=== PATIENT | male | born 1945 | race African-American/Black ===

== ENCOUNTER 2016-11-17 14:32 | Inpatient (IN) | payer OTHER, MEDICARE ==
[~2016-11-17] VITALS: Ht 170.2 cm; Wt 58.2 kg
[~2016-11-17 14:32] MED LIST changes: -LISI-170 PO
[2016-11-17] MEDS ORDERED: ADENOSINE 6 MG/2 ML ONE (15:06)
[2016-11-17] MEDS ORDERED: LISI-170 PO (15:28)
[2016-11-17] MEDS ORDERED: SODIUM CHLORIDE FLUSH 10ML SYR IVF ONE (15:30)
[2016-11-17] MEDS ORDERED: ADENOSINE 6 MG/2 ML IVPush ONE ×2 (15:30)
[2016-11-17] MEDS ORDERED: SODIUM CHLORIDE 0.9% 1,000ML IVBOLUS ONE (15:30)
[2016-11-17 15:49] LABS: BLOOD UREA NITROGEN 92 mg/dL (7-18)
[2016-11-17 15:55] LABS: ASPARTATE AMINO TRANSFERASE 50 U/L (15-37)
[2016-11-17 15:56] LABS: IS PT STATUS REG ER OR PRE ER? YES
[2016-11-17] MEDS ORDERED: DILTIAZEM 5 MG/ML, 5ML IVPush ONE (16:00)
[2016-11-17] MEDS ORDERED: DIGOXIN 0.25 MG/ML, 2ML IVPush ONE (16:00)
[2016-11-17] MEDS ORDERED: ETOMIDATE 20 MG/10 ML ONE (16:24)
[2016-11-17] MEDS ORDERED: DIGOXIN 0.25 MG/ML, 2ML ONE (16:24)
[2016-11-17] MEDS ORDERED: DILTIAZEM 5 MG/ML, 5ML ONE (16:25)
[2016-11-17] MEDS ORDERED: AMIODARONE 900 MG in DEXTROSE 5% 482 ML IV PRN (17:00)
[2016-11-17] MEDS ORDERED: AMIODARONE 300 MG in DEXTROSE 5% 100 ML IV ONE (17:00)
[2016-11-17] MEDS ORDERED: FILTER 0.22 MICRON FOR AMIODARONE IV PRN (17:30)
[2016-11-17] MEDS ORDERED: NOREPINEPHRINE 4 MG in SODIUM CHLORIDE 0.9% 246 ML IV PRN (18:00)
[2016-11-17] MEDS ORDERED: PIPERACILLIN/TAZO 2.25 GM in SODIUM CHLORIDE 0.9% 100 ML IVPB ONE (18:00)
[2016-11-17] MEDS ORDERED: VANCOMYCIN PER PHARMACY MC ONE (18:00)
[2016-11-17] MEDS ORDERED: VANCOMYCIN 1,100 MG in SODIUM CHLORIDE 0.9% 250 ML IV ONE (18:30)
[2016-11-17] MEDS ORDERED: SODIUM BICARBONATE 4.2%, 5ML ONE (19:50)
[2016-11-17] MEDS ORDERED: LIDOCAINE 1%, 20ML ONE (19:50)
[2016-11-17] MEDS ORDERED: ACETAMINOPHEN 325 MG TABLET PO PRN (20:30)
[2016-11-17] MEDS ORDERED: DOCUSATE 100 MG CAPSULE PO PRN (20:30)
[2016-11-17] MEDS ORDERED: POLYETHYLENE GLYCOL 17 GM PACKET PO PRN (20:30)
[2016-11-17] MEDS ORDERED: VASOPRESSIN 100 UNIT in SODIUM CHLORIDE 0.9% 495 ML IV PRN (20:30)
[2016-11-17] MEDS ORDERED: ONDANSETRON 2MG/ML, 2ML IVPush PRN (20:30)
[2016-11-17] MEDS ORDERED: LABETALOL 5MG/ML, 20ML IVPush PRN (20:30)
[2016-11-17] MEDS ORDERED: BISACODYL 10 MG SUPP PR PRN (20:30)
[2016-11-17] MEDS: NS + 20MEQ KCL 1,000 ML IV SCH (21:17)
[2016-11-17 21:42] VITALS: BP 85/58
[2016-11-17 22:00] VITALS: BP 84/60
[2016-11-17] MEDS: HEPARIN 5,000 UNITS/ML, 1ML SQ SCH (22:11)
[2016-11-17] MEDS: LINEZOLID PMX 600MG/300ML 300 ML IV SCH (22:12)
[2016-11-18] MEDS: PIPERACILLIN/TAZO 2.25 GM in SODIUM CHLORIDE 0.9% 100 ML IV SCH ×4 (00:16→17:47)
[2016-11-18] MEDS: NS + 20MEQ KCL 1,000 ML IV SCH ×3 (02:44→19:52)
[2016-11-18 04:15] VITALS: BP 103/72
[2016-11-18] MEDS: HEPARIN 5,000 UNITS/ML, 1ML SQ SCH ×3 (05:21→20:57)
[2016-11-18 05:41] LABS: ASPARTATE AMINO TRANSFERASE 41 U/L (15-37); BLOOD UREA NITROGEN 69 mg/dL (7-18)
[2016-11-18] MEDS: POTASSIUM CHLORIDE 20 MEQ TAB.ER.PRT PO SCH ×2 (10:07→19:52)
[2016-11-18] MEDS: LINEZOLID PMX 600MG/300ML 300 ML IV SCH ×2 (10:07→20:01)
[2016-11-18] MEDS: NOREPINEPHRINE 4 MG in SODIUM CHLORIDE 0.9% 246 ML IV PRN (17:48)
[2016-11-18] MEDS: AMIODARONE 200 MG TABLET PO SCH (19:52)
[2016-11-18] MEDS: PIPERACILLIN/TAZO/PMX 2.25GM 50 ML IV SCH (23:38)
[2016-11-19] MEDS: NS + 20MEQ KCL 1,000 ML IV SCH ×2 (01:05→08:17)
[2016-11-19 03:54] VITALS: BP 95/58
[2016-11-19 04:47] LABS: BLOOD UREA NITROGEN 37 mg/dL (7-18)
[2016-11-19 04:51] LABS: ASPARTATE AMINO TRANSFERASE 34 U/L (15-37)
[2016-11-19] MEDS: PIPERACILLIN/TAZO/PMX 2.25GM 50 ML IV SCH ×2 (05:28→13:27)
[2016-11-19] MEDS: HEPARIN 5,000 UNITS/ML, 1ML SQ SCH ×3 (05:28→22:00)
[2016-11-19] MEDS ORDERED: BUPIVACAINE/PF-EPI 0.25% 1:200K ONE (07:05)
[2016-11-19] MEDS: LINEZOLID PMX 600MG/300ML 300 ML IV SCH ×2 (08:17→21:41)
[2016-11-19] MEDS: AMIODARONE 200 MG TABLET PO SCH ×2 (08:28→21:48)
[2016-11-19] MEDS ORDERED: SODIUM CHLORIDE 0.9% 1,000 ML IV SCH (09:30)
[2016-11-19] MEDS: NOREPINEPHRINE 4 MG in SODIUM CHLORIDE 0.9% 246 ML IV PRN (13:45)
[2016-11-19] MEDS ORDERED: FENTANYL PF 250 MCG/5ML ONE (13:59)
[2016-11-19] MEDS ORDERED: MIDAZOLAM 1 MG/ML, 2ML ONE (13:59)
[2016-11-19] MEDS ORDERED: CALCIUM CHLORIDE 10%, 10ML SYR ONE (15:30)
[2016-11-19] MEDS ORDERED: EPHEDRINE 50 MG/ML, 1ML ONE (15:30)
[2016-11-19] MEDS ORDERED: PHENYLEPHRINE 10 MG/ML ONE (15:30)
[2016-11-19] MEDS ORDERED: SODIUM BICARB 8.4%, 50ML SYRINGE ONE (15:30)
[2016-11-19] MEDS ORDERED: ROCURONIUM 10 MG/ML ONE (15:30)
[2016-11-19] MEDS ORDERED: PROPOFOL 10 MG/ML, 20ML ONE (15:30)
[2016-11-19] MEDS ORDERED: POTASSIUM CHLORIDE 20 MEQ in D5%-0.45% NACL 1,000 ML IV SCH (18:32)
[2016-11-19 18:45] LABS: ABG COLLECTION SITE ARTERIAL LINE
[2016-11-19 18:54] LABS: HIV-1 p24 ANTIGEN Nonreactive (Nonreactive)
[2016-11-19] MEDS ORDERED: LACTULOSE 20 GM/30 ML UDC NG PRN (19:00)
[2016-11-19] MEDS ORDERED: BISACODYL 10 MG SUPP PR PRN (19:00)
[2016-11-19] MEDS ORDERED: ONDANSETRON 2MG/ML, 2ML IV PRN (19:00)
[2016-11-19] MEDS ORDERED: SENNA/DOCUSATE TABLET NG PRN (19:00)
[2016-11-19] MEDS ORDERED: PHARMACY MAY ADJ FOR RENAL FX MC SCH (19:00)
[2016-11-19] MEDS ORDERED: LABETALOL 5MG/ML, 20ML IVPush PRN (19:00)
[2016-11-19] MEDS ORDERED: SENNOSIDES 8.8 MG/5 ML ORAL SOL NG PRN (19:00)
[2016-11-19 19:01] LABS: HIV 1&2 ANTIBODY SCREEN Preliminary Positive (Nonreactive); HIV 1/2 Ab/Ag DISCLAIMER *** Please Note ***; HIV-1/2 Ab/Ag COMBO COMMENT *** Comment ***
[2016-11-19 19:04] LABS: HIV 1&2 ANTIBODY SCREEN REPEAT Preliminary Positive (Nonreactive); HIV 1/2 Ab/Ag DISCLAIMER *** Please Note ***; HIV-1 p24 ANTIGEN REPEAT Nonreactive (Nonreactive)
[2016-11-19 19:07] LABS: HIV-1/2 Ab/Ag COMBO COM REPEAT *** Comment ***
[2016-11-19] MEDS ORDERED: PROPOFOL 100 ML IV ONE (19:08)
[2016-11-19] MEDS: PROPOFOL 100 ML IV PRN (19:19)
[2016-11-19] MEDS: morphine SULFATE 10 MG/ML, 1ML IV PRN (19:24)
[2016-11-19] MEDS: POTASSIUM CHLORIDE 20 MEQ in D5%-0.45% NACL 1,000 ML IV SCH (20:25)
[2016-11-19] MEDS: PIPERACILLIN/TAZO/PMX 4.5GM 100 ML IV SCH (20:25)
[2016-11-19 20:32] LABS: BLOOD UREA NITROGEN 25 mg/dL (7-18)
[2016-11-19] MEDS ORDERED: FLUCONAZOLE 400 MG/200 ML 200 ML IV SCH (21:00)
[2016-11-19] MEDS: FLUCONAZOLE 400 MG/200 ML 200 ML IV SCH (21:49)
[2016-11-19] MEDS: FLUCONAZOLE 200 MG/100 ML 100 ML IV SCH (21:50)
[2016-11-19] MEDS ORDERED: FLUCONAZOLE 200 MG/100 ML 100 ML IV SCH (22:00)
[2016-11-20] MEDS: PIPERACILLIN/TAZO/PMX 4.5GM 100 ML IV SCH ×4 (02:19→20:38)
[2016-11-20 04:03] VITALS: BP 107/68
[2016-11-20 04:43] LABS: ABG COLLECTION SITE ARTERIAL LINE
[2016-11-20] MEDS: HEPARIN 5,000 UNITS/ML, 1ML SQ SCH ×3 (05:35→20:39)
[2016-11-20] MEDS: PROPOFOL 100 ML IV PRN ×2 (06:22→20:38)
[2016-11-20] MEDS: morphine SULFATE 10 MG/ML, 1ML IV PRN ×2 (06:45→13:09)
[2016-11-20 07:23] LABS: ASPARTATE AMINO TRANSFERASE 32 U/L (15-37); BLOOD UREA NITROGEN 21 mg/dL (7-18)
[2016-11-20 07:28] LABS: DIFF TOTAL CELLS COUNTED 100 CELL DIFF
[2016-11-20 07:34] LABS: VERIFY COUNTS? YES
[2016-11-20] MEDS ORDERED: MAGNESIUM SULFATE PMX 2GM/50ML 50 ML IV ONE (09:00)
[2016-11-20] MEDS: AMIODARONE 200 MG TABLET PO SCH ×2 (09:00→20:38)
[2016-11-20] MEDS: LINEZOLID PMX 600MG/300ML 300 ML IV SCH ×2 (10:02→21:39)
[2016-11-20 12:23] LABS: C-REACTIVE PROTEIN, QUANT 6.1 mg/dL (0.02-0.49)
[2016-11-20] MEDS ORDERED: FILTER 0.22 MICRON IV PRN (16:30)
[2016-11-20] MEDS ORDERED: AMIODARONE 900 MG in DEXTROSE 5% 482 ML IV PRN (16:30)
[2016-11-20] MEDS: POTASSIUM CHLORIDE 20 MEQ in D5%-0.45% NACL 1,000 ML IV SCH (17:34)
[2016-11-20] MEDS ORDERED: AMIODARONE 150 MG in DEXTROSE 5% 100 ML IV ONE (18:30)
[2016-11-20] MEDS ORDERED: POTASSIUM CHLORIDE 10% 20 MEQ/15 ML UDC PO ONE (18:30)
[2016-11-20] MEDS ORDERED: FILTER 0.22 MICRON IV ONE (18:30)
[2016-11-20] MEDS: NOREPINEPHRINE 4 MG in SODIUM CHLORIDE 0.9% 246 ML IV PRN (20:37)
[2016-11-21] MEDS: FLUCONAZOLE 400 MG/200 ML 200 ML IV SCH (00:31)
[2016-11-21] MEDS: morphine SULFATE 10 MG/ML, 1ML IV PRN ×2 (00:31→03:49)
[2016-11-21 03:45] VITALS: BP 116/65
[2016-11-21] MEDS: FLUCONAZOLE 200 MG/100 ML 100 ML IV SCH (03:48)
[2016-11-21 04:44] LABS: ABG COLLECTION SITE RIGHT RADIAL; COLLATERAL CIRCULATION TESTING NORMAL
[2016-11-21 05:10] LABS: BLOOD UREA NITROGEN 15 mg/dL (7-18)
[2016-11-21 05:14] LABS: ASPARTATE AMINO TRANSFERASE 23 U/L (15-37)
[2016-11-21] MEDS: PIPERACILLIN/TAZO/PMX 4.5GM 100 ML IV SCH ×4 (05:45→21:23)
[2016-11-21] MEDS: HEPARIN 5,000 UNITS/ML, 1ML SQ SCH (05:45)
[2016-11-21] MEDS: AMIODARONE 200 MG TABLET PO SCH ×2 (09:00→20:58)
[2016-11-21] MEDS: POTASSIUM CHLORIDE 20 MEQ in D5%-0.45% NACL 1,000 ML IV SCH ×2 (09:13→21:23)
[2016-11-21] MEDS: LINEZOLID PMX 600MG/300ML 300 ML IV SCH ×2 (09:51→20:56)
[2016-11-21] MEDS ORDERED: AMIODARONE 900 MG in DEXTROSE 5% 482 ML IV PRN (16:00)
[2016-11-21] MEDS ORDERED: FILTER 0.22 MICRON IV ONE (16:00)
[2016-11-22] MEDS: morphine SULFATE 10 MG/ML, 1ML IV PRN ×5 (00:46→23:53)
[2016-11-22] MEDS: PIPERACILLIN/TAZO/PMX 4.5GM 100 ML IV SCH ×4 (04:03→20:59)
[2016-11-22 04:23] LABS: ABG COLLECTION SITE RIGHT RADIAL; COLLATERAL CIRCULATION TESTING NORMAL
[2016-11-22 04:36] LABS: BLOOD UREA NITROGEN 11 mg/dL (7-18)
[2016-11-22 04:39] LABS: ASPARTATE AMINO TRANSFERASE 24 U/L (15-37)
[2016-11-22] MEDS: POTASSIUM CHLORIDE 20 MEQ in D5%-0.45% NACL 1,000 ML IV SCH ×2 (08:18→20:59)
[2016-11-22] MEDS: LINEZOLID PMX 600MG/300ML 300 ML IV SCH (08:19)
[2016-11-22] MEDS: AMIODARONE 200 MG TABLET PO SCH ×2 (09:00→20:25)
[2016-11-22] MEDS: EFAVIRENZ/EMTRICITAB/TENOFOVIR 600MG-200MG-300MG TABLET PO SCH (09:00)
[2016-11-22 15:06] LABS: ABSOLUTE CD 4 HELPER 461 /uL (359-1519); HEMATOCRIT 30.9 % (37.5-51.0); IMMATURE GRANS (ABSOLUTE) 0.1 x10E3/uL (0.0-0.1); IMMATURE GRANULOCYTES 1 % (.); MCH 31.1 pg (26.6-33.0); MCHC 32.4 g/dL (31.5-35.7); MCV 96 fL (79-97); MONOCYTES 11 % (.); NEUTROPHILS 82 % (.); PLATELETS 365 x10E3/uL (150-379); RBC 3.22 x10E6/uL (4.14-5.80); RDW 15.8 % (12.3-15.4); WBC 18.4 x10E3/uL (3.4-10.8)
[2016-11-22 20:06] LABS: HERPES SIMPLEX VIRUS-1 DNA PCR Negative (Negative); HERPES SIMPLEX VIRUS-2 DNA PCR Negative (Negative)
[2016-11-23] MEDS: morphine SULFATE 10 MG/ML, 1ML IV PRN (02:34)
[2016-11-23] MEDS: PIPERACILLIN/TAZO/PMX 4.5GM 100 ML IV SCH ×4 (03:00→16:30)
[2016-11-23 04:27] LABS: ASPARTATE AMINO TRANSFERASE 31 U/L (15-37); BLOOD UREA NITROGEN 10 mg/dL (7-18)
[2016-11-23 04:29] LABS: ABG COLLECTION SITE LEFT BRACHIAL
[2016-11-23] MEDS: EFAVIRENZ/EMTRICITAB/TENOFOVIR 600MG-200MG-300MG TABLET PO SCH (09:00)
[2016-11-23] MEDS: AMIODARONE 200 MG TABLET PO SCH ×2 (09:00→21:00)
[2016-11-23 14:53] LABS: CRYPTOCOCCUS ANTIGEN SERUM Negative (Negative)
[2016-11-23] MEDS: POTASSIUM CHLORIDE 20 MEQ in D5%-0.45% NACL 1,000 ML IV SCH ×2 (16:30→19:10)
[2016-11-24] MEDS: POTASSIUM CHLORIDE 20 MEQ in D5%-0.45% NACL 1,000 ML IV SCH ×4 (02:00→22:20)
[2016-11-24] MEDS: PIPERACILLIN/TAZO/PMX 4.5GM 100 ML IV SCH ×4 (03:00→23:02)
[2016-11-24] MEDS: EFAVIRENZ/EMTRICITAB/TENOFOVIR 600MG-200MG-300MG TABLET PO SCH (09:00)
[2016-11-24] MEDS: AMIODARONE 200 MG TABLET PO SCH ×2 (09:00→22:20)
[2016-11-24] MEDS: FUROSEMIDE 10 MG/ML ORAL SOL PO SCH (16:52)
[2016-11-24 19:50] VITALS: BP 133/89
[2016-11-24] MEDS ORDERED: FUROSEMIDE 10 MG/ML ORAL SOL PO SCH (21:00)
[2016-11-24] MEDS: TRAZODONE 50MG TABLET PO PRN (22:20)
[2016-11-24] MEDS: POTASSIUM CHLORIDE 20 MEQ PACKET PO SCH (22:21)
[2016-11-25 02:23] VITALS: BP 101/64
[2016-11-25] MEDS: PIPERACILLIN/TAZO/PMX 4.5GM 100 ML IV SCH ×4 (04:19→22:36)
[2016-11-25] MEDS: POTASSIUM CHLORIDE 20 MEQ in D5%-0.45% NACL 1,000 ML IV SCH ×2 (04:19→17:39)
[2016-11-25 07:30] LABS: ASPARTATE AMINO TRANSFERASE 33 U/L (15-37); BLOOD UREA NITROGEN 6 mg/dL (7-18)
[2016-11-25 07:48] VITALS: BP 108/70
[2016-11-25] MEDS: FUROSEMIDE 10 MG/ML ORAL SOL PO SCH (08:58)
[2016-11-25] MEDS: AMIODARONE 200 MG TABLET PO SCH ×2 (08:58→21:16)
[2016-11-25] MEDS: EFAVIRENZ/EMTRICITAB/TENOFOVIR 600MG-200MG-300MG TABLET PO SCH (08:59)
[2016-11-25] MEDS: POTASSIUM CHLORIDE 20 MEQ PACKET PO SCH (08:59)
[2016-11-25] MEDS ORDERED: AMIODARONE 150 MG in DEXTROSE 5% 100 ML IV ONE (10:00)
[2016-11-25 12:55] VITALS: BP 112/71
[2016-11-25] MEDS ORDERED: FILTER 0.22 MICRON FOR AMIODARONE IV PRN (15:30)
[2016-11-25] MEDS ORDERED: ACETAMINOPHEN 650 MG/20.3 ML UDC PO PRN (15:59)
[2016-11-25 18:59] VITALS: BP 104/63
[2016-11-26] MEDS: POTASSIUM CHLORIDE 20 MEQ in D5%-0.45% NACL 1,000 ML IV SCH ×3 (01:09→21:23)
[2016-11-26 01:41] VITALS: BP 96/62
[2016-11-26] MEDS: TRAZODONE 50MG TABLET PO PRN ×2 (02:13→22:53)
[2016-11-26 04:03] LABS: ASPARTATE AMINO TRANSFERASE 29 U/L (15-37); BLOOD UREA NITROGEN 7 mg/dL (7-18)
[2016-11-26] MEDS: PIPERACILLIN/TAZO/PMX 4.5GM 100 ML IV SCH ×4 (05:01→22:53)
[2016-11-26 07:13] VITALS: BP 104/65
[2016-11-26] MEDS: AMIODARONE 200 MG TABLET PO SCH ×2 (09:36→20:16)
[2016-11-26] MEDS: EFAVIRENZ/EMTRICITAB/TENOFOVIR 600MG-200MG-300MG TABLET PO SCH (09:37)
[2016-11-26] MEDS ORDERED: POTASSIUM CHLORIDE 20 MEQ TAB.ER.PRT PO ONE (10:30)
[2016-11-26] MEDS ORDERED: POTASSIUM CHLORIDE 10% 40 MEQ/30 ML UDC PO ONE (10:30)
[2016-11-26 13:11] VITALS: BP 114/64
[2016-11-26 18:59] VITALS: BP 117/73
[2016-11-26 20:14] VITALS: BP 110/68
[2016-11-27 00:25] VITALS: BP 133/60
[2016-11-27 05:46] LABS: ASPARTATE AMINO TRANSFERASE 29 U/L (15-37); BLOOD UREA NITROGEN 8 mg/dL (7-18)
[2016-11-27] MEDS: PIPERACILLIN/TAZO/PMX 4.5GM 100 ML IV SCH ×4 (06:38→23:04)
[2016-11-27] MEDS: POTASSIUM CHLORIDE 20 MEQ in D5%-0.45% NACL 1,000 ML IV SCH (07:28)
[2016-11-27 07:33] VITALS: BP 109/65
[2016-11-27 11:57] LABS: BLOOD UREA NITROGEN 7 mg/dL (7-18)
[2016-11-27] MEDS: AMIODARONE 200 MG TABLET PO SCH ×2 (12:44→21:48)
[2016-11-27] MEDS: EFAVIRENZ/EMTRICITAB/TENOFOVIR 600MG-200MG-300MG TABLET PO SCH (12:44)
[2016-11-27 13:10] VITALS: BP 126/77
[2016-11-27 19:58] VITALS: BP 130/65
[2016-11-28 00:24] VITALS: BP 106/71
[2016-11-28] MEDS: PIPERACILLIN/TAZO/PMX 4.5GM 100 ML IV SCH ×4 (04:48→23:39)
[2016-11-28 05:09] LABS: BLOOD UREA NITROGEN 8 mg/dL (7-18)
[2016-11-28 06:50] VITALS: BP 122/68
[2016-11-28] MEDS: AMIODARONE 200 MG TABLET PO SCH ×2 (09:29→21:12)
[2016-11-28] MEDS: EFAVIRENZ/EMTRICITAB/TENOFOVIR 600MG-200MG-300MG TABLET PO SCH (09:30)
[2016-11-28] MEDS: GUAIFENESIN 200 MG TABLET PO SCH ×3 (12:51→21:12)
[2016-11-28 14:10] VITALS: BP 121/74
[2016-11-28] MEDS ORDERED: ENOXAPARIN 40 MG/0.4 ML SQ SCH (18:30)
[2016-11-28 19:06] VITALS: BP 115/69
[2016-11-29 01:29] VITALS: BP 111/57
[2016-11-29] MEDS: GUAIFENESIN 200 MG TABLET PO SCH ×4 (05:00→21:23)
[2016-11-29] MEDS: PIPERACILLIN/TAZO/PMX 4.5GM 100 ML IV SCH ×3 (05:00→20:26)
[2016-11-29 05:45] LABS: BLOOD UREA NITROGEN 9 mg/dL (7-18)
[2016-11-29 05:48] LABS: ASPARTATE AMINO TRANSFERASE 25 U/L (15-37)
[2016-11-29 07:20] VITALS: BP 135/73
[2016-11-29] MEDS: AMIODARONE 200 MG TABLET PO SCH ×2 (08:52→14:47)
[2016-11-29] MEDS: EFAVIRENZ/EMTRICITAB/TENOFOVIR 600MG-200MG-300MG TABLET PO SCH ×2 (08:52→14:46)
[2016-11-29] MEDS: POTASSIUM CHLORIDE 20 MEQ TAB.ER.PRT PO ONE ×2 (08:52→14:47)
[2016-11-29] MEDS: ASPIRIN 81 MG TABLET CHEW PO SCH ×2 (08:52→09:00)
[2016-11-29 12:40] VITALS: BP 136/79
[2016-11-29] MEDS: ALBUTEROL SULFATE 2.5 MG/3 ML NPPB SCH ×2 (15:25→20:28)
[2016-11-29 16:42] LABS: ABG COLLECTION SITE RIGHT RADIAL; COLLATERAL CIRCULATION TESTING NORMAL
[2016-11-29] MEDS ORDERED: POTASSIUM CHLORIDE 20 MEQ PACKET PO SCH (17:00)
[2016-11-29] MEDS: FUROSEMIDE 40 MG/4 ML IV SCH (17:22)
[2016-11-29] MEDS ORDERED: AMIODARONE 200 MG TABLET PO ONE (18:00)
[2016-11-29] MEDS: ENOXAPARIN 40 MG/0.4 ML SQ SCH (21:17)
[2016-11-29] MEDS: ALBUMIN HUMAN 25% 100 ML IV SCH (21:23)
[2016-11-30] MEDS: AMIODARONE 200 MG TABLET PO SCH ×3 (00:31→21:04)
[2016-11-30] MEDS: PIPERACILLIN/TAZO/PMX 4.5GM 100 ML IV SCH ×5 (00:31→22:52)
[2016-11-30 04:39] LABS: BLOOD UREA NITROGEN 9 mg/dL (7-18)
[2016-11-30] MEDS: GUAIFENESIN 200 MG TABLET PO SCH ×4 (05:08→21:04)
[2016-11-30] MEDS: ALBUTEROL SULFATE 2.5 MG/3 ML NPPB SCH ×6 (06:00→21:35)
[2016-11-30] MEDS: EFAVIRENZ/EMTRICITAB/TENOFOVIR 600MG-200MG-300MG TABLET PO SCH (09:12)
[2016-11-30] MEDS: POTASSIUM CHLORIDE 10% 40 MEQ/30 ML UDC PO SCH ×2 (09:14→21:04)
[2016-11-30] MEDS: ASPIRIN 81 MG TABLET CHEW PO SCH (09:14)
[2016-11-30] MEDS: FUROSEMIDE 40 MG/4 ML IV SCH (09:15)
[2016-11-30] MEDS: ALBUMIN HUMAN 25% 100 ML IV SCH ×2 (09:16→21:05)
[2016-11-30] MEDS: ENOXAPARIN 40 MG/0.4 ML SQ SCH (21:05)
[2016-11-30] MEDS: TRAZODONE 50MG TABLET PO PRN (22:51)
[2016-12-01] MEDS: TRAZODONE 50MG TABLET PO PRN (00:04)
[2016-12-01] MEDS: ALBUTEROL SULFATE 2.5 MG/3 ML NPPB SCH ×2 (01:45→06:55)
[2016-12-01] MEDS: PIPERACILLIN/TAZO/PMX 4.5GM 100 ML IV SCH ×4 (04:50→23:19)
[2016-12-01 05:00] VITALS: BP 128/68
[2016-12-01 05:01] LABS: BLOOD UREA NITROGEN 10 mg/dL (7-18)
[2016-12-01] MEDS: GUAIFENESIN 200 MG TABLET PO SCH ×4 (05:34→20:53)
[2016-12-01] MEDS ORDERED: POTASSIUM CHLORIDE 10% 40 MEQ/30 ML UDC PO ONE (07:01)
[2016-12-01] MEDS ORDERED: ETOMIDATE 20 MG/10 ML ONE (08:00)
[2016-12-01] MEDS ORDERED: MIDAZOLAM 1 MG/ML, 5ML ONE (08:00)
[2016-12-01] MEDS ORDERED: PROPOFOL 10 MG/ML, 20ML ONE (08:00)
[2016-12-01] MEDS: AMIODARONE 200 MG TABLET PO SCH ×2 (08:24→20:53)
[2016-12-01] MEDS: ASPIRIN 81 MG TABLET CHEW PO SCH (08:24)
[2016-12-01] MEDS: EFAVIRENZ/EMTRICITAB/TENOFOVIR 600MG-200MG-300MG TABLET PO SCH (08:24)
[2016-12-01] MEDS: ALBUMIN HUMAN 25% 100 ML IV SCH ×2 (09:21→20:54)
[2016-12-01 10:02] LABS: ABG COLLECTION SITE LEFT RADIAL; COLLATERAL CIRCULATION TESTING NORMAL; FIO2 85 %
[2016-12-01] MEDS ORDERED: ALBUTEROL SULFATE 2.5 MG/3 ML INLINE SCH (11:00)
[2016-12-01] MEDS ORDERED: NOREPINEPHRINE 4 MG in SODIUM CHLORIDE 0.9% 246 ML IV PRN (11:07)
[2016-12-01] MEDS ORDERED: ALBUTEROL/IPRATROPIUM 2.5MG/0.5MG, 3 ML INLINE SCH (11:30)
[2016-12-01] MEDS ORDERED: GLUCAGON 1 MG IM PRN (11:30)
[2016-12-01] MEDS ORDERED: FENTANYL PF 100 MCG/2ML IVPush PRN (11:30)
[2016-12-01] MEDS ORDERED: MIDAZOLAM 1 MG/ML, 2ML IVPush PRN (11:30)
[2016-12-01] MEDS ORDERED: DEXTROSE 50%, 50ML SYRINGE IVPush PRN (11:30)
[2016-12-01 12:00] LABS: ABG COLLECTION SITE LEFT BRACHIAL
[2016-12-01] MEDS: PROPOFOL 100 ML IV PRN ×2 (15:05→22:04)
[2016-12-01] MEDS: ALBUTEROL/IPRATROPIUM 2.5MG/0.5MG, 3 ML INLINE SCH ×3 (15:25→22:04)
[2016-12-01] MEDS ORDERED: SODIUM CHLORIDE 0.9%, 500ML IVBOLUS ONE ×2 (20:00→21:00)
[2016-12-01] MEDS: SODIUM CHLORIDE FLUSH 10ML SYR IVF SCH (20:54)
[2016-12-01] MEDS: ENOXAPARIN 40 MG/0.4 ML SQ SCH (20:58)
[2016-12-02] MEDS: ALBUTEROL/IPRATROPIUM 2.5MG/0.5MG, 3 ML INLINE SCH ×6 (01:22→21:00)
[2016-12-02] MEDS: LIDOCAINE-MPF 1%, 2ML ENDO PRN ×3 (04:46→19:11)
[2016-12-02 04:58] LABS: ABG COLLECTION SITE LEFT RADIAL; COLLATERAL CIRCULATION TESTING NORMAL
[2016-12-02 05:00] VITALS: BP 74/52
[2016-12-02 05:00] LABS: BLOOD UREA NITROGEN 11 mg/dL (7-18)
[2016-12-02] MEDS: PIPERACILLIN/TAZO/PMX 4.5GM 100 ML IV SCH ×3 (06:06→17:35)
[2016-12-02] MEDS: GUAIFENESIN 200 MG TABLET PO SCH ×4 (06:06→21:06)
[2016-12-02] MEDS ORDERED: POTASSIUM CHLORIDE 10% 40 MEQ/30 ML UDC PO ONE (07:30)
[2016-12-02] MEDS: ALBUMIN HUMAN 25% 100 ML IV SCH ×2 (08:36→21:05)
[2016-12-02] MEDS: EFAVIRENZ/EMTRICITAB/TENOFOVIR 600MG-200MG-300MG TABLET PO SCH (08:36)
[2016-12-02] MEDS: ASPIRIN 81 MG TABLET CHEW PO SCH (08:36)
[2016-12-02] MEDS: SODIUM CHLORIDE FLUSH 10ML SYR IVF SCH ×2 (08:36→21:06)
[2016-12-02] MEDS: AMIODARONE 200 MG TABLET PO SCH (08:37)
[2016-12-02] MEDS: PROPOFOL 100 ML IV PRN ×2 (08:53→17:31)
[2016-12-02] MEDS: SODIUM CHLORIDE 0.9% 1,000 ML IV SCH ×2 (09:11→22:20)
[2016-12-02] MEDS: FAMOTIDINE 20 MG/2 ML IVPush SCH ×2 (10:25→21:06)
[2016-12-02 17:06] LABS: HCV LOG10 5.872 (.); HEPATITIS C PCR QUANTITATION 745000 IU/mL (.)
[2016-12-02] MEDS: ENOXAPARIN 40 MG/0.4 ML SQ SCH (21:08)
[2016-12-03] VITALS (7 sets, daily range): BP systolic 92–108; BP diastolic 52–60
[2016-12-03] MEDS: PIPERACILLIN/TAZO/PMX 4.5GM 100 ML IV SCH ×4 (01:00→17:14)
[2016-12-03] MEDS: ALBUTEROL/IPRATROPIUM 2.5MG/0.5MG, 3 ML INLINE SCH ×6 (01:00→21:00)
[2016-12-03] MEDS: PROPOFOL 100 ML IV PRN ×3 (01:01→20:11)
[2016-12-03] MEDS: morphine SULFATE 10 MG/ML, 1ML IV PRN ×2 (03:41→20:27)
[2016-12-03 04:27] LABS: ABG COLLECTION SITE RIGHT RADIAL; COLLATERAL CIRCULATION TESTING NORMAL
[2016-12-03 04:55] LABS: BLOOD UREA NITROGEN 9 mg/dL (7-18)
[2016-12-03] MEDS: GUAIFENESIN 200 MG TABLET PO SCH ×4 (07:50→20:13)
[2016-12-03] MEDS: ALBUMIN HUMAN 25% 100 ML IV SCH ×3 (09:00→20:22)
[2016-12-03] MEDS: GLYCOPYRROLATE 1 MG TABLET PO SCH ×2 (09:00→20:12)
[2016-12-03] MEDS: AMIODARONE 200 MG TABLET PO SCH (09:09)
[2016-12-03] MEDS: ASPIRIN 81 MG TABLET CHEW PO SCH (09:09)
[2016-12-03] MEDS: EFAVIRENZ/EMTRICITAB/TENOFOVIR 600MG-200MG-300MG TABLET PO SCH (09:09)
[2016-12-03] MEDS: POTASSIUM CHLORIDE 10% 40 MEQ/30 ML UDC PO SCH ×2 (09:09→20:12)
[2016-12-03] MEDS: SODIUM CHLORIDE FLUSH 10ML SYR IVF SCH ×2 (09:10→20:11)
[2016-12-03] MEDS: FAMOTIDINE 20 MG/2 ML IVPush SCH ×2 (09:10→20:14)
[2016-12-03] MEDS: SODIUM CHLORIDE 0.9% 1,000 ML IV SCH (16:16)
[2016-12-03] MEDS: ENOXAPARIN 40 MG/0.4 ML SQ SCH (20:13)
[2016-12-04] MEDS: PIPERACILLIN/TAZO/PMX 4.5GM 100 ML IV SCH ×5 (01:05→23:37)
[2016-12-04] MEDS: SODIUM CHLORIDE 0.9% 1,000 ML IV SCH ×2 (01:05→08:48)
[2016-12-04] MEDS: ALBUTEROL/IPRATROPIUM 2.5MG/0.5MG, 3 ML INLINE SCH ×6 (02:29→21:24)
[2016-12-04 04:18] LABS: ABG COLLECTION SITE RIGHT RADIAL; COLLATERAL CIRCULATION TESTING NORMAL
[2016-12-04 04:27] LABS: BLOOD UREA NITROGEN 12 mg/dL (7-18)
[2016-12-04] MEDS: PROPOFOL 100 ML IV PRN ×2 (06:03→15:43)
[2016-12-04] MEDS: GUAIFENESIN 200 MG TABLET PO SCH ×4 (08:47→21:58)
[2016-12-04] MEDS: FAMOTIDINE 20 MG/2 ML IVPush SCH ×2 (08:48→21:58)
[2016-12-04] MEDS: ASPIRIN 81 MG TABLET CHEW PO SCH (08:48)
[2016-12-04] MEDS: SODIUM CHLORIDE FLUSH 10ML SYR IVF SCH ×2 (08:48→21:58)
[2016-12-04] MEDS: GLYCOPYRROLATE 1 MG TABLET PO SCH ×2 (08:48→21:58)
[2016-12-04] MEDS: AMIODARONE 200 MG TABLET PO SCH (08:48)
[2016-12-04] MEDS: EFAVIRENZ/EMTRICITAB/TENOFOVIR 600MG-200MG-300MG TABLET PO SCH (08:49)
[2016-12-04] MEDS ORDERED: SODIUM BICARBONATE 4.2%, 5ML ONE (13:57)
[2016-12-04] MEDS: morphine SULFATE 10 MG/ML, 1ML IV PRN (17:02)
[2016-12-04] MEDS: SODIUM BICARBONATE 4.2%, 5ML NPPB SCH ×2 (17:36→21:24)
[2016-12-04] MEDS: ENOXAPARIN 40 MG/0.4 ML SQ SCH (21:58)
[2016-12-05] MEDS: SODIUM BICARBONATE 4.2%, 5ML NPPB SCH ×6 (01:54→22:00)
[2016-12-05] MEDS: ALBUTEROL/IPRATROPIUM 2.5MG/0.5MG, 3 ML INLINE SCH ×6 (01:54→22:06)
[2016-12-05] MEDS: morphine SULFATE 10 MG/ML, 1ML IV PRN ×2 (02:15→21:03)
[2016-12-05 04:35] LABS: ABG COLLECTION SITE RIGHT RADIAL; COLLATERAL CIRCULATION TESTING NORMAL
[2016-12-05 05:35] LABS: BLOOD UREA NITROGEN 11 mg/dL (7-18)
[2016-12-05] MEDS: PIPERACILLIN/TAZO/PMX 4.5GM 100 ML IV SCH ×3 (05:53→21:00)
[2016-12-05] MEDS: AMIODARONE 200 MG TABLET PO SCH (09:27)
[2016-12-05] MEDS: GLYCOPYRROLATE 1 MG TABLET PO SCH ×2 (09:27→21:00)
[2016-12-05] MEDS: FAMOTIDINE 20 MG/2 ML IVPush SCH ×2 (09:27→21:01)
[2016-12-05] MEDS: SODIUM CHLORIDE 0.9% 1,000 ML IV SCH (09:28)
[2016-12-05] MEDS: EFAVIRENZ/EMTRICITAB/TENOFOVIR 600MG-200MG-300MG TABLET PO SCH (09:28)
[2016-12-05] MEDS: GUAIFENESIN 200 MG TABLET PO SCH ×4 (09:28→21:03)
[2016-12-05] MEDS: ASPIRIN 81 MG TABLET CHEW PO SCH (09:29)
[2016-12-05] MEDS: SODIUM CHLORIDE FLUSH 10ML SYR IVF SCH ×2 (09:30→21:01)
[2016-12-05] MEDS: ENOXAPARIN 40 MG/0.4 ML SQ SCH (21:01)
[2016-12-05] MEDS: LIDOCAINE-MPF 1%, 2ML ENDO PRN (22:33)
[2016-12-06] MEDS: SODIUM BICARBONATE 4.2%, 5ML NPPB SCH ×6 (01:52→22:00)
[2016-12-06] MEDS: ALBUTEROL/IPRATROPIUM 2.5MG/0.5MG, 3 ML INLINE SCH ×4 (01:52→15:00)
[2016-12-06] MEDS: PIPERACILLIN/TAZO/PMX 4.5GM 100 ML IV SCH ×4 (03:17→23:06)
[2016-12-06] MEDS: morphine SULFATE 10 MG/ML, 1ML IV PRN ×2 (03:18→20:00)
[2016-12-06 04:00] VITALS: BP 126/70
[2016-12-06 04:27] LABS: ABG COLLECTION SITE LEFT RADIAL; COLLATERAL CIRCULATION TESTING NORMAL
[2016-12-06 04:35] LABS: BLOOD UREA NITROGEN 11 mg/dL (7-18)
[2016-12-06] MEDS: GUAIFENESIN 200 MG TABLET PO SCH ×4 (05:55→20:51)
[2016-12-06] MEDS: EFAVIRENZ/EMTRICITAB/TENOFOVIR 600MG-200MG-300MG TABLET PO SCH (09:28)
[2016-12-06] MEDS: GLYCOPYRROLATE 1 MG TABLET PO SCH ×2 (09:30→20:53)
[2016-12-06] MEDS: AMIODARONE 200 MG TABLET PO SCH (09:30)
[2016-12-06] MEDS: FAMOTIDINE 20 MG/2 ML IVPush SCH ×2 (09:33→20:51)
[2016-12-06] MEDS: ASPIRIN 81 MG TABLET CHEW PO SCH (09:33)
[2016-12-06] MEDS: SODIUM CHLORIDE FLUSH 10ML SYR IVF SCH ×2 (09:34→20:51)
[2016-12-06] MEDS: SODIUM CHLORIDE 0.9% 1,000 ML IV SCH (10:05)
[2016-12-06] MEDS: PROPOFOL 100 ML IV PRN (12:06)
[2016-12-06] MEDS ORDERED: ALBUTEROL/IPRATROPIUM 2.5MG/0.5MG, 3 ML NPPB SCH (17:00)
[2016-12-06] MEDS ORDERED: FUROSEMIDE 20 MG/2 ML ONE (18:29)
[2016-12-06] MEDS ORDERED: FUROSEMIDE 20 MG/2 ML IV ONE (18:30)
[2016-12-06] MEDS ORDERED: MIDAZOLAM 1 MG/ML, 5ML IVPush ONE (19:00)
[2016-12-06] MEDS ORDERED: ETOMIDATE 20 MG/10 ML IVPush ONE (19:00)
[2016-12-06] MEDS: ENOXAPARIN 40 MG/0.4 ML SQ SCH (20:53)
[2016-12-06 21:19] LABS: ABG COLLECTION SITE LEFT RADIAL; COLLATERAL CIRCULATION TESTING NORMAL
[2016-12-06] MEDS ORDERED: DEXTROSE 50%, 50ML SYRINGE IVPush PRN (22:00)
[2016-12-06] MEDS ORDERED: POLYETHYLENE GLYCOL 17 GM PACKET PO PRN (22:00)
[2016-12-06] MEDS ORDERED: GLUCAGON 1 MG IM PRN (22:00)
[2016-12-06] MEDS ORDERED: PHARMACY MAY ADJ FOR RENAL FX MC SCH (22:00)
[2016-12-06] MEDS: ALBUTEROL/IPRATROPIUM 2.5MG/0.5MG, 3 ML NPPB SCH (22:00)
[2016-12-06] MEDS ORDERED: ACETAMINOPHEN 650 MG/20.3 ML UDC PO PRN (22:00)
[2016-12-06] MEDS ORDERED: BISACODYL 10 MG SUPP PR PRN (22:00)
[2016-12-06] MEDS: LIDOCAINE-MPF 1%, 2ML ENDO PRN (23:33)
[2016-12-07] MEDS: SODIUM BICARBONATE 4.2%, 5ML NPPB SCH ×2 (02:00→06:00)
[2016-12-07] MEDS: ALBUTEROL/IPRATROPIUM 2.5MG/0.5MG, 3 ML NPPB SCH ×6 (02:00→22:00)
[2016-12-07 04:00] VITALS: BP 122/73
[2016-12-07 05:02] LABS: BLOOD UREA NITROGEN 10 mg/dL (7-18)
[2016-12-07 05:04] LABS: ABG COLLECTION SITE RIGHT RADIAL
[2016-12-07 05:05] LABS: COLLATERAL CIRCULATION TESTING NORMAL
[2016-12-07] MEDS: GUAIFENESIN 200 MG TABLET PO SCH ×4 (05:54→19:50)
[2016-12-07] MEDS: PIPERACILLIN/TAZO/PMX 4.5GM 100 ML IV SCH ×4 (05:54→23:27)
[2016-12-07] MEDS: morphine SULFATE 10 MG/ML, 1ML IV PRN ×3 (06:09→12:14)
[2016-12-07] MEDS: FAMOTIDINE 20 MG/2 ML IVPush SCH ×2 (08:40→19:50)
[2016-12-07] MEDS: AMIODARONE 200 MG TABLET PO SCH (08:41)
[2016-12-07] MEDS: ASPIRIN 81 MG TABLET CHEW PO SCH (08:41)
[2016-12-07] MEDS: GLYCOPYRROLATE 1 MG TABLET PO SCH ×2 (08:41→19:50)
[2016-12-07] MEDS: SODIUM CHLORIDE FLUSH 10ML SYR IVF SCH ×2 (08:42→19:50)
[2016-12-07] MEDS: EFAVIRENZ/EMTRICITAB/TENOFOVIR 600MG-200MG-300MG TABLET PO SCH (08:45)
[2016-12-07] MEDS: PROPOFOL 100 ML IV PRN (15:44)
[2016-12-07] MEDS: SODIUM CHLORIDE 0.9% 1,000 ML IV SCH (19:00)
[2016-12-07] MEDS: ENOXAPARIN 40 MG/0.4 ML SQ SCH (19:50)
[2016-12-08] MEDS: ALBUTEROL/IPRATROPIUM 2.5MG/0.5MG, 3 ML NPPB SCH ×6 (01:40→22:00)
[2016-12-08] MEDS: LIDOCAINE-MPF 1%, 2ML ENDO PRN (01:40)
[2016-12-08 05:00] VITALS: BP 150/82
[2016-12-08 05:04] LABS: ABG COLLECTION SITE RIGHT BRACHIAL
[2016-12-08] MEDS: PIPERACILLIN/TAZO/PMX 4.5GM 100 ML IV SCH ×4 (05:16→23:52)
[2016-12-08] MEDS: PROPOFOL 100 ML IV PRN (05:16)
[2016-12-08 05:47] LABS: BLOOD UREA NITROGEN 10 mg/dL (7-18)
[2016-12-08] MEDS: GUAIFENESIN 200 MG TABLET PO SCH ×2 (06:00→10:05)
[2016-12-08] MEDS ORDERED: BUPIVACAINE/PF-EPI 0.5% 1:200K ONE (06:52)
[2016-12-08] MEDS ORDERED: MIDAZOLAM 1 MG/ML, 2ML ONE (07:08)
[2016-12-08] MEDS ORDERED: FENTANYL PF 250 MCG/5ML ONE (07:08)
[2016-12-08] MEDS: ASPIRIN 81 MG TABLET CHEW PO SCH (08:49)
[2016-12-08] MEDS: FAMOTIDINE 20 MG/2 ML IVPush SCH ×2 (08:49→19:57)
[2016-12-08] MEDS: EFAVIRENZ/EMTRICITAB/TENOFOVIR 600MG-200MG-300MG TABLET PO SCH (08:49)
[2016-12-08] MEDS: AMIODARONE 200 MG TABLET PO SCH (08:49)
[2016-12-08] MEDS: CHOLESTYRAMINE 4GM PACKET PO SCH ×2 (08:50→21:00)
[2016-12-08] MEDS: GLYCOPYRROLATE 1 MG TABLET PO SCH ×2 (08:50→20:29)
[2016-12-08] MEDS: SODIUM CHLORIDE FLUSH 10ML SYR IVF SCH ×2 (09:00→19:57)
[2016-12-08] MEDS: morphine SULFATE 10 MG/ML, 1ML IV PRN ×3 (09:17→14:40)
[2016-12-08] MEDS ORDERED: ROCURONIUM 10 MG/ML ONE (16:05)
[2016-12-08] MEDS ORDERED: PROPOFOL 10 MG/ML, 20ML ONE (16:05)
[2016-12-08] MEDS: ENOXAPARIN 40 MG/0.4 ML SQ SCH (19:47)
[2016-12-08] MEDS: SODIUM CHLORIDE 0.9% 1,000 ML IV SCH (20:29)
[2016-12-09] MEDS: morphine SULFATE 10 MG/ML, 1ML IV PRN (01:10)
[2016-12-09] MEDS: ALBUTEROL/IPRATROPIUM 2.5MG/0.5MG, 3 ML NPPB SCH ×4 (02:00→14:00)
[2016-12-09 05:00] VITALS: BP 131/78
[2016-12-09] MEDS: PIPERACILLIN/TAZO/PMX 4.5GM 100 ML IV SCH (05:16)
[2016-12-09 05:41] LABS: ABG COLLECTION SITE ARTERIAL LINE
[2016-12-09 05:59] LABS: ASPARTATE AMINO TRANSFERASE 25 U/L (15-37); BLOOD UREA NITROGEN 7 mg/dL (7-18)
[2016-12-09] MEDS ORDERED: CHOLESTYRAMINE 4GM PACKET PO PRN (08:30)
[2016-12-09] MEDS: ASPIRIN 81 MG TABLET CHEW PO SCH (09:00)
[2016-12-09] MEDS: FAMOTIDINE 20 MG/2 ML IVPush SCH (10:08)
[2016-12-09] MEDS: GLYCOPYRROLATE 1 MG TABLET PO SCH (10:08)
[2016-12-09] MEDS: EFAVIRENZ/EMTRICITAB/TENOFOVIR 600MG-200MG-300MG TABLET PO SCH (10:08)
[2016-12-09] MEDS: AMIODARONE 200 MG TABLET PO SCH (10:09)
[2016-12-09] MEDS: SODIUM CHLORIDE FLUSH 10ML SYR IVF SCH (10:10)
[2016-12-09] MEDS ORDERED: ASPI-515 PO (10:53)
[2016-12-09] MEDS ORDERED: FAMO20VI3 IVPush (10:53)
[2016-12-09] MEDS ORDERED: EFAV1TAB PO (10:53)
[2016-12-09] MEDS ORDERED: ENOX40SY4 SQ (10:53)
[2016-12-09] MEDS ORDERED: AMIO200T42 PO (10:53)
[2016-12-09] MEDS ORDERED: BISA10SU65 PR (10:53)
[2016-12-09] MEDS ORDERED: PIPE4.5V3 IV (11:10)
== END 2016-12-09 15:20 | DRG 3 ==
LOC: ED 19:00 → EDIP 19:02 → ED 19:24 → CCU 20:27 → 5SO 11-24 18:32 → CCU 11-29 16:24
PROVIDERS: ADMIT Internal Medicine; ATTEND Internal Medicine
PROC: 5A2204Z Restoration of Cardiac Rhythm, Single (ICD-10-PCS; principal; 2016-11-17)
PROC: 0W993ZZ Drainage of Right Pleural Cavity, Percutaneous Approach (ICD-10-PCS; 2016-11-17)
PROC: 0DH63UZ Insertion of Feeding Device into Stomach, Percutaneous Approach (ICD-10-PCS; 2016-11-17)
PROC: 0BDN0ZZ Extraction of Right Pleura, Open Approach (ICD-10-PCS; 2016-11-19)
PROC: 5A1955Z Respiratory Ventilation, Greater than 96 Consecutive Hours (ICD-10-PCS; 2016-11-19)
PROC: 0BH18EZ Insertion of Endotracheal Airway into Trachea, Via Natural or Artificial Opening Endoscopic (ICD-10-PCS; 2016-11-19)
PROC: 30233N1 Transfusion of Nonautologous Red Blood Cells into Peripheral Vein, Percutaneous Approach (ICD-10-PCS; 2016-11-19)
PROC: 02HV33Z Insertion of Infusion Device into Superior Vena Cava, Percutaneous Approach (ICD-10-PCS; 2016-11-25)
PROC: B548ZZA Ultrasonography of Superior Vena Cava, Guidance (ICD-10-PCS; 2016-11-25)
PROC: 0B113F4 Bypass Trachea to Cutaneous with Tracheostomy Device, Percutaneous Approach (ICD-10-PCS; 2016-12-08)
DX: A41.9 Sepsis, unspecified organism (principal); R65.21 Severe sepsis with septic shock; N17.0 Acute kidney failure with tubular necrosis; E43 Unspecified severe protein-calorie malnutrition; J96.00 Acute respiratory failure, unspecified whether with hypoxia or hypercapnia; J85.1 Abscess of lung with pneumonia; J94.8 Other specified pleural conditions; J93.9 Pneumothorax, unspecified; N17.9 Acute kidney failure, unspecified; E87.1 Hypo-osmolality and hyponatremia; I48.1 Persistent atrial fibrillation; R17 Unspecified jaundice; I48.92 Unspecified atrial flutter; D68.69 Other thrombophilia; Z99.11 Dependence on respirator [ventilator] status; I10 Essential (primary) hypertension; E87.6 Hypokalemia; G62.9 Polyneuropathy, unspecified; I50.9 Heart failure, unspecified; I11.0 Hypertensive heart disease with heart failure; D64.9 Anemia, unspecified; E87.5 Hyperkalemia; Z51.5 Encounter for palliative care; D63.8 Anemia in other chronic diseases classified elsewhere; I48.0 Paroxysmal atrial fibrillation; B18.2 Chronic viral hepatitis C; D75.89 Other specified diseases of blood and blood-forming organs; J06.9 Acute upper respiratory infection, unspecified; R13.10 Dysphagia, unspecified; Z68.20 Body mass index [BMI] 20.0-20.9, adult
CPT/HCPCS: 36415; 36569; 36600; 71010; 71020; 71250; 74000; 74230; 76937; 76942; 77001; 80048; 80053; 82533; 82803; 82962; 83605; 83615; 83735; 83880; 84100; 84145; 84439; 84443; 84478; 84484; 85025; 85610; 85651; 85730; 86140; 86361; 86592; 86701; 86702; 86703; 86803; 86850; 86900; 86923; 87040; 87070; 87075; 87076; 87081; 87086; 87205; 87281; 87324; 87521; 87522; 87529; 87536; 87899; 88305; 88341; 88342; 89051; 93005; 93308; 93321; 93325; 94002; 94003; 94150; 94640; 96361; 96365; 96368; 96375; 99292; C1729; J0153; J1450; J1644; J1650; J1940; J2020; J2250; J2543; J2704; J3010; J3370; J3480; J3490; J7613; J7620; P9047; C1751; G0435; G0461; J0282; J1160; J2270; J2370; J3475; J7030; J7040; J7050; J7060; P9016; S0028

== ENCOUNTER → 2016-11-17 | Outpatient (CLI) | payer OTHER ==
[~2016-11-17] MED LIST: LISI-170 PO; PHEN50TA PO
== END | disposition home or self-care (01) ==
LOC: RAD 13:07
PROVIDERS: ATTEND Family Medicine
DX: J94.8 Other specified pleural conditions (principal); R07.9 Chest pain, unspecified; R06.00 Dyspnea, unspecified
CPT/HCPCS: 71020

== ENCOUNTER → 2017-07-16 | Outpatient (CLI) | payer OTHER, MEDICARE ==
[~2017-07-16] MED LIST changes: +AMIO200T42 PO; +ASPI-515 PO; +BISA10SU65 PR; +EFAV1TAB PO; +ENOX40SY4 SQ; +FAMO20VI3 IVPush; +LISI-170 PO; +PIPE4.5V3 IV; +REGADENOSON 0.4 MG/5 ML SYRINGE ONE
== END | disposition home or self-care (01) ==
LOC: CFH 07:47
PROVIDERS: ATTEND Internal Medicine Cardiovascular Disease
DX: I34.0 Nonrheumatic mitral (valve) insufficiency (principal); I10 Essential (primary) hypertension
CPT/HCPCS: 78452; 93017; A9502; J2785

== ENCOUNTER → 2017-10-06 | Outpatient (CLI) | payer OTHER, MEDICARE ==
[~2017-10-06] MED LIST changes: -REGADENOSON 0.4 MG/5 ML SYRINGE ONE
[2017-10-06 16:23] LABS: ALANINE AMINOTRANSFERASE 41 U/L (12-78); ALBUMIN 3.8 g/dL (3.4-5.0); ANION GAP 6 mmol/L (5-15); CALCIUM 8.6 mg/dL (8.5-10.1); CHLORIDE 109 mmol/L (98-107); CREATININE 1.15 mg/dL (0.7-1.3); T4 (THYROXINE) 14.1 mcg/dL (4.5-12.1)
[2017-10-06 16:33] LABS: ALKALINE PHOSPHATASE 98 U/L (45-117); BILIRUBIN,TOTAL 0.5 mg/dL (0.2-1.0)
== END ==
LOC: LAB 15:53
PROVIDERS: ATTEND Internal Medicine Cardiovascular Disease
DX: I10 Essential (primary) hypertension (principal); I34.0 Nonrheumatic mitral (valve) insufficiency; I48.0 Paroxysmal atrial fibrillation; Z79.01 Long term (current) use of anticoagulants
CPT/HCPCS: 36415; 80053; 84436; 84443; 84481

== ENCOUNTER 2019-01-14 19:46 | Inpatient (IN) | payer MEDICARE, OTHER ==
[~2019-01-14] VITALS: Ht 170.2 cm; Wt 72.3 kg
[2019-01-16 14:00] VITALS: BP 99/68
== END 2019-01-16 16:53 | disposition home or self-care (01) | DRG 280 ==
LOC: ED 21:12 → EDIP 21:54 → 5SO 23:23
PROVIDERS: ADMIT Family Medicine; ATTEND Family Medicine
DX: I21.A1 Myocardial infarction type 2 (principal); N17.0 Acute kidney failure with tubular necrosis; E87.2 Acidosis; I42.9 Cardiomyopathy, unspecified; D68.59 Other primary thrombophilia; B18.2 Chronic viral hepatitis C; I48.2 Chronic atrial fibrillation; F32.9 Major depressive disorder, single episode, unspecified; I50.9 Heart failure, unspecified; I11.0 Hypertensive heart disease with heart failure; I07.1 Rheumatic tricuspid insufficiency; Z82.49 Family history of ischemic heart disease and other diseases of the circulatory system; Z79.01 Long term (current) use of anticoagulants
CPT/HCPCS: 36415; 71045; 78452; 80053; 82140; 83735; 83880; 84484; 85025; 85610; 93005; 93017; 93306; 99285; G0378; J2785; A9502; C9898; J1940

== ENCOUNTER 2019-01-30 09:41 | Outpatient (CLI) | payer MEDICARE, OTHER | END 2019-01-30 23:59 | disposition home or self-care (01) | LOC: CFH 09:41 | PROVIDERS: ATTEND Family Medicine | DX: N50.89 Other specified disorders of the male genital organs (principal); N43.2 Other hydrocele | CPT/HCPCS: 76700; 76870; 93975 ==

== ENCOUNTER 2019-03-22 10:24 | Inpatient (IN) | payer MEDICARE ==
[~2019-03-22] VITALS: Ht 170.2 cm; Wt 78.8 kg
[~2019-03-22 10:24] MED LIST changes: +AMIO100T4 PO; +APIX5TAB PO; +CARV12.52 PO; +LATA7.5D EACHEYE; +SPIR25TA5 PO; +TERA2CAP3 PO
--- NOTE | 2019-03-22 10:59 | NUR ---
THIS IS A 73YO MALE THAT COMES IN TODAY W C/O DIZZINESS, WEAKNESS AND OVERALL JUST NOT FEELING RIGHT. PT HAS A HX OF CHF. EKG COMPLETED TECH AT BEDSIDE. PT IS CONNECTED TO ALL MONITORS AT THIS TIME, VSS TACHY HR 120'S, PT IS AO X'S 4. CALL LIGHT WITHIN REACH.
--- NOTE | 2019-03-22 11:14 | NUR ---
MD TO BEDSIDE FOR ASSESSMENT
[2019-03-22] MEDS ORDERED: LABETALOL 5 MG/ML SYR. (IV ONLY) IVPush ONE (11:30)
[2019-03-22] MEDS ORDERED: SODIUM CHLORIDE FLUSH 10ML SYR IVF ONE (11:30)
--- NOTE | 2019-03-22 11:47 | NUR ---
IV STARTED, LABS DRAWN AND CHEST XRAY DONE
[2019-03-22 11:55] LABS: MEAN CORPUSCULAR HEMOGLOBIN 27.5 pg (27.5-34.5); MEAN CORPUSCULAR HGB CONC 31.9 g/dL (33.2-36.2); MEAN CORPUSCULAR VOLUME 86.1 fL (81-97); MEAN PLATELET VOLUME 7.7 fL (7.4-10.4); PLATELET COUNT 228 x10^3/uL (130-400); RED BLOOD COUNT 4.84 x10^6/uL (4.38-5.82); RED CELL DISTRIBUTION WIDTH 24.2 % (9.4-14.8)
[2019-03-22 12:04] LABS: ALBUMIN 3.1 g/dL (3.4-5.0); ANION GAP 10 mmol/L (5-15); CALCIUM 8.5 mg/dL (8.5-10.1); CHLORIDE 113 mmol/L (98-107)
[2019-03-22 12:11] LABS: ALANINE AMINOTRANSFERASE 16 U/L (12-78); ALKALINE PHOSPHATASE 84 U/L (45-117); CREATININE 1.01 mg/dL (0.7-1.3)
[2019-03-22 12:17] LABS: ANISOCYTOSIS 1+; BASOPHILS % (AUTO) 0 % (0-1); EOSINOPHILS # (AUTO) 0.22 x10^3/uL (0-0.4); EOSINOPHILS % (AUTO) 1 % (1-7); LYMPHOCYTES # (AUTO) 0.36 x10^3/uL (1-3.4); LYMPHOCYTES % (AUTO) 2 % (22-44); MD MORPH REVIEW ONLY; MONOCYTES # (AUTO) 0.54 x10^3/uL (0.2-0.8); MONOCYTES % (AUTO) 3 % (2-9); NEUTROPHILS # (AUTO) 15.03 x10^3/uL (1.8-6.8); NEUTROPHILS % (AUTO) 93 % (42-75); POLYCHROMASIA 1+; TARGET CELLS 1+
[2019-03-22 12:19] LABS: <PLATELET ESTIMATE> ADEQUATE; <PLT MORPHOLOGY> NORMAL PLT MORPH
[2019-03-22] MEDS ORDERED: LABETALOL 5MG/ML, 20ML ONE (12:22)
--- NOTE | 2019-03-22 12:31 | NUR ---
PT MEDICATED PER AUG. PT RESTING ON GURRIO HONDO PT EXPRESSED NO FURTHER NEEDS AT THIS TIME
--- NOTE | 2019-03-22 12:36 | NUR ---
AT BEDSIDE FOR RECHECK AND TO DISCUSS POC
[2019-03-22] MEDS ORDERED: FUROSEMIDE 40 MG/4 ML ONE (12:45)
[2019-03-22] MEDS ORDERED: FUROSEMIDE 40 MG/4 ML IV ONE (13:00)
[2019-03-22] MEDS ORDERED: SODIUM CHLORIDE FLUSH 10ML SYR IVF PRN (13:00)
--- NOTE | 2019-03-22 13:01 | NUR ---
URINE SENT TO LAB.
[2019-03-22 13:23] LABS: CULTURE INDICATED? YES; MICROSCOPIC INDICATED
--- NOTE | 2019-03-22 14:20 | NUR ---
PT RESTING ON GURNEY WATCHING TV. PT EXPRESSES NO FURTHER NEEDS AT THIS TIME. VSS HR CONTINUES TO BE TACHY 120'S.
--- NOTE | 2019-03-22 14:48 | NUR ---
HOSPITAL BED ORDERED
--- NOTE | 2019-03-22 15:20 | NUR ---
TASK RN: PT PROVIDED W/ LUNCH TRAY.
--- NOTE | 2019-03-22 15:52 | NUR ---
TASK RN: PT MOVED FROM [facility] TO HOSPITAL BED. NADN. PITTS
--- NOTE | 2019-03-22 17:28 | NUR ---
PT RESTING ON [place] WATCHING TV. CALL LIGHT WITHIN REACH. PT EXPRESSES NO FURTHER NEEDS AT THIS TIME
--- NOTE | 2019-03-22 18:07 | NUR ---
DR. ARIAS AT BEDSIDE TO ASSESS/ ADMIT PT
--- NOTE | 2019-03-22 18:16 | NUR ---
REPORT CALLED TO [facility]. PT READY FOR TRANSPORT.
[2019-03-22] MEDS ORDERED: DOCUSATE 100 MG CAPSULE PO PRN (19:30)
[2019-03-22] MEDS ORDERED: DILTIAZEM 5 MG/ML, 5ML IVPush PRN (19:30)
[2019-03-22] MEDS ORDERED: ONDANSETRON 2MG/ML, 2ML IVPush PRN (19:30)
[2019-03-22] MEDS ORDERED: POLYETHYLENE GLYCOL 17 GM PACKET PO PRN (19:30)
[2019-03-22] MEDS ORDERED: BISACODYL 10 MG SUPP PR PRN (19:30)
[2019-03-22] MEDS ORDERED: LABETALOL 5 MG/ML SYR. (IV ONLY) IVPush PRN (19:30)
[2019-03-22] MEDS ORDERED: ENALAPRILAT 1.25 MG/ML, 2ML IVPush PRN (19:30)
[2019-03-22 20:03] LABS: TROPONIN I 0.028 ng/mL (0.000-0.045)
[2019-03-22 20:16] VITALS: BP 114/80
[2019-03-22] MEDS: CARVEDILOL 12.5 MG TABLET PO SCH (21:12)
[2019-03-22] MEDS: CEFTRIAXONE PMX 1GM/50ML 50 ML IV SCH (21:12)
[2019-03-22] MEDS: SPIRONOLACTONE 25 MG TABLET PO SCH (21:12)
[2019-03-22] MEDS: APIXABAN 5 MG TABLET PO SCH (21:12)
[2019-03-22] MEDS: LACTULOSE 10 GM/15 ML UDC PO SCH (21:13)
[2019-03-22] MEDS: TERAZOSIN 2MG CAPSULE PO SCH (21:13)
[2019-03-22 22:15] VITALS: BP 114/80
[2019-03-23] MEDS: OXYcodone IR 5MG TABLET PO PRN ×3 (00:09→19:56)
[2019-03-23 00:12] VITALS: BP 113/77
[2019-03-23 01:26] LABS: MEAN CORPUSCULAR HEMOGLOBIN 26.6 pg (27.5-34.5); MEAN CORPUSCULAR HGB CONC 31.5 g/dL (33.2-36.2); MEAN CORPUSCULAR VOLUME 84.4 fL (81-97); MEAN PLATELET VOLUME 7.3 fL (7.4-10.4); PLATELET COUNT 207 x10^3/uL (130-400); RED BLOOD COUNT 4.52 x10^6/uL (4.38-5.82); RED CELL DISTRIBUTION WIDTH 23.7 % (9.4-14.8)
[2019-03-23 01:38] LABS: ALANINE AMINOTRANSFERASE 11 U/L (12-78); ALBUMIN 2.5 g/dL (3.4-5.0); ANION GAP 8 mmol/L (5-15); CALCIUM 8.3 mg/dL (8.5-10.1); CHLORIDE 113 mmol/L (98-107); CREATININE 1.02 mg/dL (0.7-1.3)
[2019-03-23 01:42] LABS: MD YES
[2019-03-23 01:43] LABS: TROPONIN I 0.025 ng/mL (0.000-0.045)
[2019-03-23 01:46] LABS: ANISOCYTOSIS 1+; BAND#(MANUAL) 2.27 x10^3/uL; BANDS%(MANUAL) 16 % (0-7); LYMPH#(MANUAL) 0.43 x10^3/uL (1-3.4); LYMPHS% (MANUAL) 3 % (22-44); MONOS#(MANUAL) 0.43 x10^3/uL (0.3-2.7); MONOS% (MANUAL) 3 % (2-9); POLYCHROMASIA 1+; SEG#(MANUAL) 11.08 x10^3/uL (1.8-6.8); SEGS% (MANUAL) 78 % (42-75); TARGET CELLS 1+
[2019-03-23 01:47] LABS: <PLATELET ESTIMATE> ADEQUATE; <PLT MORPHOLOGY> NORMAL PLT MORPH; CRENATED 1+
[2019-03-23 01:48] LABS: ALKALINE PHOSPHATASE 77 U/L (45-117); BILIRUBIN,TOTAL 2.3 mg/dL (0.2-1.0); TOTAL PROTEIN 5.9 g/dL (6.4-8.2)
[2019-03-23] MEDS: ACETAMINOPHEN 325 MG TABLET PO PRN (02:50)
[2019-03-23] MEDS: FUROSEMIDE 20 MG/2 ML IV SCH ×2 (06:55→17:56)
[2019-03-23] MEDS: LACTULOSE 10 GM/15 ML UDC PO SCH (09:00)
[2019-03-23] MEDS ORDERED: AMIODARONE 200 MG TABLET PO SCH (09:00)
[2019-03-23] MEDS ORDERED: LISINOPRIL 20 MG TABLET PO SCH (09:00)
[2019-03-23 09:20] VITALS: BP 126/97
[2019-03-23 11:23] VITALS: BP 106/77
[2019-03-23] MEDS: CARVEDILOL 12.5 MG TABLET PO SCH ×2 (11:24→21:14)
[2019-03-23] MEDS: APIXABAN 5 MG TABLET PO SCH ×2 (11:25→21:14)
[2019-03-23] MEDS: SPIRONOLACTONE 25 MG TABLET PO SCH ×2 (11:25→18:37)
[2019-03-23] MEDS ORDERED: LACTULOSE 10 GM/15 ML UDC PO PRN (12:30)
[2019-03-23 13:10] VITALS: BP 102/68
[2019-03-23 17:30] VITALS: BP 110/76
[2019-03-23] MEDS ORDERED: DILTIAZEM 125 MG in SODIUM CHLORIDE 0.9% 100 ML IV SCH (18:30)
[2019-03-23 18:56] VITALS: BP 120/70
[2019-03-23] MEDS: TERAZOSIN 2MG CAPSULE PO SCH (21:14)
[2019-03-23] MEDS: CEFTRIAXONE PMX 1GM/50ML 50 ML IV SCH (21:16)
[2019-03-24 00:55] VITALS: BP 120/86
[2019-03-24 05:19] LABS: MEAN CORPUSCULAR HGB CONC 31.7 g/dL (33.2-36.2); MEAN CORPUSCULAR VOLUME 85.3 fL (81-97); MEAN PLATELET VOLUME 8.2 fL (7.4-10.4); PLATELET COUNT 183 x10^3/uL (130-400); RED BLOOD COUNT 4.42 x10^6/uL (4.38-5.82)
[2019-03-24 05:23] LABS: ANION GAP 7 mmol/L (5-15); CALCIUM 8.2 mg/dL (8.5-10.1); CHLORIDE 112 mmol/L (98-107); CREATININE 0.89 mg/dL (0.7-1.3)
[2019-03-24 05:49] LABS: MD YES
[2019-03-24 05:50] LABS: BAND#(MANUAL) 0.94 x10^3/uL; BANDS%(MANUAL) 7 % (0-7); LYMPHS% (MANUAL) 6 % (22-44); MONOS% (MANUAL) 3 % (2-9); SEG#(MANUAL) 11.26 x10^3/uL (1.8-6.8); SEGS% (MANUAL) 84 % (42-75)
[2019-03-24 05:51] LABS: ANISOCYTOSIS 1+; POLYCHROMASIA 1+; TARGET CELLS 1+
[2019-03-24 05:52] LABS: <PLATELET ESTIMATE> ADEQUATE; <PLT MORPHOLOGY> NORMAL PLT MORPH; ECHINOCYTES 1+
[2019-03-24] MEDS: FUROSEMIDE 20 MG/2 ML IV SCH ×2 (07:30→16:21)
[2019-03-24 08:15] VITALS: BP 114/85
[2019-03-24] MEDS: SPIRONOLACTONE 25 MG TABLET PO SCH (09:00)
[2019-03-24] MEDS: CARVEDILOL 12.5 MG TABLET PO SCH ×2 (09:55→21:05)
[2019-03-24] MEDS: APIXABAN 5 MG TABLET PO SCH ×2 (09:55→21:05)
[2019-03-24] MEDS: OXYcodone IR 5MG TABLET PO PRN ×3 (09:57→22:48)
[2019-03-24 14:03] VITALS: BP 94/64
[2019-03-24] MEDS: DILTIAZEM 125 MG in SODIUM CHLORIDE 0.9% 100 ML IV SCH (16:38)
[2019-03-24 16:39] VITALS: BP 96/70
[2019-03-24 18:36] VITALS: BP 106/74
[2019-03-24] MEDS: TERAZOSIN 2MG CAPSULE PO SCH (21:05)
[2019-03-24] MEDS: CEFTRIAXONE PMX 1GM/50ML 50 ML IV SCH (21:27)
[2019-03-25 02:19] VITALS: BP 112/78
[2019-03-25] MEDS: OXYcodone IR 5MG TABLET PO PRN ×2 (05:28→13:37)
[2019-03-25 05:34] LABS: ALBUMIN 2.2 g/dL (3.4-5.0); ANION GAP 7 mmol/L (5-15); CALCIUM 7.9 mg/dL (8.5-10.1); CHLORIDE 107 mmol/L (98-107)
[2019-03-25 05:35] LABS: MEAN CORPUSCULAR HEMOGLOBIN 27.5 pg (27.5-34.5); MEAN CORPUSCULAR HGB CONC 32.4 g/dL (33.2-36.2); MEAN CORPUSCULAR VOLUME 84.9 fL (81-97); MEAN PLATELET VOLUME 8.4 fL (7.4-10.4); PLATELET COUNT 214 x10^3/uL (130-400); RED BLOOD COUNT 4.36 x10^6/uL (4.38-5.82); RED CELL DISTRIBUTION WIDTH 23.5 % (9.4-14.8)
[2019-03-25 05:38] LABS: ALANINE AMINOTRANSFERASE 10 U/L (12-78); ALKALINE PHOSPHATASE 70 U/L (45-117)
[2019-03-25 06:10] LABS: BASOPHILS # (AUTO) 0.02 x10^3/uL (0-0.1); BASOPHILS % (AUTO) 0 % (0-1); EOSINOPHILS % (AUTO) 1 % (1-7); LYMPHOCYTES % (AUTO) 5 % (22-44); MD SCAN; MONOCYTES % (AUTO) 4 % (2-9); NEUTROPHILS # (AUTO) 12.61 x10^3/uL (1.8-6.8); NEUTROPHILS % (AUTO) 91 % (42-75)
[2019-03-25 07:09] VITALS: BP 94/75
[2019-03-25] MEDS: FUROSEMIDE 20 MG/2 ML IV SCH ×2 (07:30→16:01)
[2019-03-25] MEDS: APIXABAN 5 MG TABLET PO SCH ×2 (08:51→20:24)
[2019-03-25] MEDS: CARVEDILOL 12.5 MG TABLET PO SCH ×2 (08:51→20:24)
[2019-03-25] MEDS: SPIRONOLACTONE 25 MG TABLET PO SCH (09:00)
[2019-03-25] MEDS: DILTIAZEM 125 MG in SODIUM CHLORIDE 0.9% 100 ML IV SCH ×2 (11:01→22:02)
[2019-03-25 12:40] VITALS: BP 94/54
[2019-03-25 18:42] VITALS: BP 102/67
[2019-03-25] MEDS: CEFTRIAXONE PMX 1GM/50ML 50 ML IV SCH (20:24)
[2019-03-25] MEDS: TERAZOSIN 2MG CAPSULE PO SCH (20:24)
[2019-03-25] MEDS: CALCIUM CARBONATE 500 MG TAB.CHEW PO SCH (20:24)
[2019-03-26 00:59] VITALS: BP 112/80
[2019-03-26] MEDS: OXYcodone IR 5MG TABLET PO PRN (03:45)
[2019-03-26 05:08] LABS: MEAN CORPUSCULAR HEMOGLOBIN 27.1 pg (27.5-34.5); MEAN CORPUSCULAR HGB CONC 31.9 g/dL (33.2-36.2); MEAN CORPUSCULAR VOLUME 85.1 fL (81-97); MEAN PLATELET VOLUME 8.2 fL (7.4-10.4); PLATELET COUNT 207 x10^3/uL (130-400); RED BLOOD COUNT 4.37 x10^6/uL (4.38-5.82); RED CELL DISTRIBUTION WIDTH 22.9 % (9.4-14.8)
[2019-03-26 05:15] LABS: CHLORIDE 106 mmol/L (98-107)
[2019-03-26 05:30] LABS: ALANINE AMINOTRANSFERASE 11 U/L (12-78); ALBUMIN 2.2 g/dL (3.4-5.0); ALKALINE PHOSPHATASE 72 U/L (45-117); ANION GAP 8 mmol/L (5-15); BILIRUBIN,TOTAL 1.5 mg/dL (0.2-1.0); CALCIUM 7.9 mg/dL (8.5-10.1); CREATININE 0.92 mg/dL (0.7-1.3); TOTAL PROTEIN 5.9 g/dL (6.4-8.2)
[2019-03-26 05:45] LABS: BASOPHILS # (AUTO) 0.16 x10^3/uL (0-0.1); BASOPHILS % (AUTO) 1 % (0-1); EOSINOPHILS % (AUTO) 1 % (1-7); LYMPHOCYTES # (AUTO) 0.41 x10^3/uL (1-3.4); LYMPHOCYTES % (AUTO) 3 % (22-44); MD SCAN; MONOCYTES % (AUTO) 5 % (2-9); NEUTROPHILS # (AUTO) 12.83 x10^3/uL (1.8-6.8); NEUTROPHILS % (AUTO) 90 % (42-75)
[2019-03-26] MEDS: CALCIUM CARBONATE 500 MG TAB.CHEW PO SCH ×2 (08:46→20:23)
[2019-03-26] MEDS: APIXABAN 5 MG TABLET PO SCH ×2 (08:46→20:22)
[2019-03-26] MEDS: SPIRONOLACTONE 25 MG TABLET PO SCH (08:46)
[2019-03-26] MEDS: MULTIVITS,STRESS FORMULA 1 TABLET PO SCH (08:46)
[2019-03-26] MEDS: FUROSEMIDE 20 MG/2 ML IV SCH ×2 (08:47→15:56)
[2019-03-26] MEDS: ASCORBIC ACID 500 MG TABLET PO SCH ×2 (08:48→15:55)
[2019-03-26 09:37] VITALS: BP 113/80
[2019-03-26] MEDS: CARVEDILOL 12.5 MG TABLET PO SCH ×2 (09:43→22:40)
[2019-03-26] MEDS ORDERED: METOPROLOL SUCCINATE 25 MG TAB.ER.24H ONE (11:25)
[2019-03-26] MEDS ORDERED: DILTIAZEM 120 MG CAP.ER.24H ONE (11:26)
[2019-03-26] MEDS: METOPROLOL SUCCINATE 25 MG TAB.ER.24H PO SCH ×2 (11:28→20:22)
[2019-03-26] MEDS: DILTIAZEM 120 MG CAP.ER.24H PO SCH (11:28)
[2019-03-26 15:00] VITALS: BP 90/62
[2019-03-26] MEDS: CHOLECALCIFEROL 400 UNITS TABLET PO SCH (16:30)
[2019-03-26] MEDS ORDERED: CHOLECALCIFEROL 400 UNITS/ML ORAL SOL PO SCH (16:30)
[2019-03-26 20:17] VITALS: BP 116/79
[2019-03-26] MEDS: CEFTRIAXONE PMX 1GM/50ML 50 ML IV SCH (20:20)
[2019-03-26] MEDS: TERAZOSIN 2MG CAPSULE PO SCH (20:20)
[2019-03-27 01:30] VITALS: BP 122/81
[2019-03-27 07:16] VITALS: BP 131/86
[2019-03-27 07:20] VITALS: BP 138/107
[2019-03-27] MEDS: FUROSEMIDE 20 MG/2 ML IV SCH ×2 (09:15→16:20)
[2019-03-27] MEDS: METOPROLOL SUCCINATE 25 MG TAB.ER.24H PO SCH (09:15)
[2019-03-27] MEDS: ASCORBIC ACID 500 MG TABLET PO SCH ×2 (09:15→16:19)
[2019-03-27] MEDS: CARVEDILOL 12.5 MG TABLET PO SCH (09:15)
[2019-03-27] MEDS: APIXABAN 5 MG TABLET PO SCH ×2 (09:15→21:05)
[2019-03-27] MEDS: CALCIUM CARBONATE 500 MG TAB.CHEW PO SCH ×2 (09:16→21:05)
[2019-03-27] MEDS: MULTIVITS,STRESS FORMULA 1 TABLET PO SCH (09:16)
[2019-03-27] MEDS: SPIRONOLACTONE 25 MG TABLET PO SCH (09:16)
[2019-03-27] MEDS: DILTIAZEM 120 MG CAP.ER.24H PO SCH (09:26)
[2019-03-27] MEDS ORDERED: DIGOXIN 0.25 MG/ML, 2ML IVPush ONE ×2 (10:00)
[2019-03-27] MEDS: DILTIAZEM 120 MG CAP.ER.12H PO SCH ×2 (11:03→21:08)
[2019-03-27] MEDS: OXYcodone IR 5MG TABLET PO PRN (12:34)
[2019-03-27 15:36] VITALS: BP 117/80
[2019-03-27] MEDS ORDERED: DIGOXIN 0.25 MG TABLET ONE (16:15)
[2019-03-27] MEDS: CHOLECALCIFEROL 400 UNITS TABLET PO SCH (16:20)
[2019-03-27] MEDS ORDERED: DIGOXIN 0.25 MG/ML, 2ML ONE (16:21)
[2019-03-27 19:42] VITALS: BP 126/88
[2019-03-27] MEDS ORDERED: METOPROLOL SUCCINATE 50 MG TAB.ER.24H PO SCH (21:00)
[2019-03-27] MEDS: TERAZOSIN 2MG CAPSULE PO SCH (21:05)
[2019-03-27] MEDS: CEFTRIAXONE PMX 1GM/50ML 50 ML IV SCH (21:06)
[2019-03-27] MEDS: CARVEDILOL 25 MG TABLET PO SCH (21:07)
[2019-03-27 21:09] VITALS: BP 107/47
[2019-03-28 01:56] VITALS: BP 140/88
[2019-03-28] MEDS: OXYcodone IR 5MG TABLET PO PRN (02:06)
[2019-03-28 07:25] VITALS: BP 126/85
[2019-03-28] MEDS: SPIRONOLACTONE 25 MG TABLET PO SCH (08:55)
[2019-03-28] MEDS: DILTIAZEM 120 MG CAP.ER.12H PO SCH ×2 (08:55→20:59)
[2019-03-28] MEDS: CALCIUM CARBONATE 500 MG TAB.CHEW PO SCH ×2 (08:55→20:57)
[2019-03-28] MEDS: MULTIVITS,STRESS FORMULA 1 TABLET PO SCH (08:55)
[2019-03-28] MEDS: DIGOXIN 0.25 MG TABLET PO SCH (08:56)
[2019-03-28] MEDS: APIXABAN 5 MG TABLET PO SCH ×2 (08:56→20:57)
[2019-03-28] MEDS: ASCORBIC ACID 500 MG TABLET PO SCH ×2 (08:56→16:28)
[2019-03-28] MEDS: FUROSEMIDE 40 MG/4 ML IV SCH ×2 (08:56→16:29)
[2019-03-28] MEDS: CARVEDILOL 25 MG TABLET PO SCH ×2 (08:56→20:58)
[2019-03-28 14:30] VITALS: BP 99/64
[2019-03-28] MEDS: CHOLECALCIFEROL 400 UNITS TABLET PO SCH (16:28)
[2019-03-28 19:43] VITALS: BP 145/73
[2019-03-28] MEDS: TERAZOSIN 2MG CAPSULE PO SCH (20:57)
[2019-03-29 01:12] VITALS: BP 116/88
[2019-03-29 06:07] LABS: ALBUMIN 2.2 g/dL (3.4-5.0); ANION GAP 7 mmol/L (5-15); CALCIUM 7.7 mg/dL (8.5-10.1); CHLORIDE 104 mmol/L (98-107); CREATININE 0.72 mg/dL (0.7-1.3)
[2019-03-29 06:26] LABS: BASOPHILS % (AUTO) 0 % (0-1); EOSINOPHILS # (AUTO) 0.12 x10^3/uL (0-0.4); EOSINOPHILS % (AUTO) 1 % (1-7); LYMPHOCYTES # (AUTO) 0.46 x10^3/uL (1-3.4); LYMPHOCYTES % (AUTO) 4 % (22-44); MD NO; MEAN CORPUSCULAR HEMOGLOBIN 26.8 pg (27.5-34.5); MEAN CORPUSCULAR HGB CONC 32.5 g/dL (33.2-36.2); MEAN CORPUSCULAR VOLUME 82.4 fL (81-97); MEAN PLATELET VOLUME 6.9 fL (7.4-10.4); MONOCYTES # (AUTO) 0.82 x10^3/uL (0.2-0.8); MONOCYTES % (AUTO) 7 % (2-9); NEUTROPHILS # (AUTO) 10.35 x10^3/uL (1.8-6.8); NEUTROPHILS % (AUTO) 88 % (42-75); PLATELET COUNT 266 x10^3/uL (130-400); RED BLOOD COUNT 4.06 x10^6/uL (4.38-5.82); RED CELL DISTRIBUTION WIDTH 21.9 % (9.4-14.8)
[2019-03-29 07:08] VITALS: BP 102/61
[2019-03-29] MEDS: ASCORBIC ACID 500 MG TABLET PO SCH ×2 (08:02→16:32)
[2019-03-29] MEDS: DIGOXIN 0.25 MG TABLET PO SCH (08:02)
[2019-03-29] MEDS: SPIRONOLACTONE 25 MG TABLET PO SCH (08:03)
[2019-03-29] MEDS: CALCIUM CARBONATE 500 MG TAB.CHEW PO SCH ×2 (08:03→21:59)
[2019-03-29] MEDS: CARVEDILOL 25 MG TABLET PO SCH ×2 (08:03→21:57)
[2019-03-29] MEDS: APIXABAN 5 MG TABLET PO SCH ×2 (08:03→21:57)
[2019-03-29] MEDS: MULTIVITS,STRESS FORMULA 1 TABLET PO SCH (08:03)
[2019-03-29] MEDS: DILTIAZEM 120 MG CAP.ER.12H PO SCH ×2 (08:03→21:57)
[2019-03-29] MEDS: FUROSEMIDE 40 MG/4 ML IV SCH ×2 (08:04→16:33)
[2019-03-29] MEDS ORDERED: POTASSIUM CHLORIDE 20 MEQ TAB.ER.PRT PO ONE (10:30)
[2019-03-29] MEDS: LISINOPRIL 5 MG TABLET PO SCH (13:33)
[2019-03-29 14:14] VITALS: BP 99/63
[2019-03-29] MEDS: OXYcodone IR 5MG TABLET PO PRN (14:57)
[2019-03-29] MEDS: CHOLECALCIFEROL 400 UNITS TABLET PO SCH (16:31)
[2019-03-29] MEDS: ACETAMINOPHEN 325 MG TABLET PO PRN (16:32)
[2019-03-29 20:32] VITALS: BP 117/72
[2019-03-29 21:56] VITALS: BP 121/82
[2019-03-29] MEDS: TERAZOSIN 2MG CAPSULE PO SCH (21:58)
[2019-03-30 01:07] VITALS: BP 133/66
[2019-03-30 05:28] LABS: BASOPHILS % (AUTO) 0 % (0-1); EOSINOPHILS # (AUTO) 0.07 x10^3/uL (0-0.4); EOSINOPHILS % (AUTO) 1 % (1-7); LYMPHOCYTES # (AUTO) 0.38 x10^3/uL (1-3.4); LYMPHOCYTES % (AUTO) 3 % (22-44); MD NO; MEAN CORPUSCULAR HEMOGLOBIN 27.2 pg (27.5-34.5); MEAN CORPUSCULAR HGB CONC 32.3 g/dL (33.2-36.2); MEAN CORPUSCULAR VOLUME 84.2 fL (81-97); MEAN PLATELET VOLUME 7.1 fL (7.4-10.4); MONOCYTES # (AUTO) 0.98 x10^3/uL (0.2-0.8); MONOCYTES % (AUTO) 7 % (2-9); NEUTROPHILS # (AUTO) 12.03 x10^3/uL (1.8-6.8); NEUTROPHILS % (AUTO) 89 % (42-75); PLATELET COUNT 299 x10^3/uL (130-400); RED BLOOD COUNT 4.06 x10^6/uL (4.38-5.82); RED CELL DISTRIBUTION WIDTH 21.9 % (9.4-14.8)
[2019-03-30 05:43] LABS: ALBUMIN 2.1 g/dL (3.4-5.0); ANION GAP 7 mmol/L (5-15); CALCIUM 7.5 mg/dL (8.5-10.1); CHLORIDE 103 mmol/L (98-107)
[2019-03-30 05:45] LABS: CREATININE 0.62 mg/dL (0.7-1.3)
[2019-03-30] MEDS: ACETAMINOPHEN 325 MG TABLET PO PRN ×2 (06:39→18:19)
[2019-03-30] MEDS ORDERED: POTASSIUM CHLORIDE 20 MEQ TAB.ER.PRT PO ONE (07:30)
[2019-03-30 07:45] VITALS: BP 124/67
[2019-03-30] MEDS: DILTIAZEM 120 MG CAP.ER.12H PO SCH (08:06)
[2019-03-30] MEDS: CALCIUM CARBONATE 500 MG TAB.CHEW PO SCH (08:06)
[2019-03-30] MEDS: ASCORBIC ACID 500 MG TABLET PO SCH ×2 (08:06→18:19)
[2019-03-30] MEDS: MULTIVITS,STRESS FORMULA 1 TABLET PO SCH (08:06)
[2019-03-30] MEDS: DIGOXIN 0.25 MG TABLET PO SCH (08:07)
[2019-03-30] MEDS: APIXABAN 5 MG TABLET PO SCH (08:07)
[2019-03-30] MEDS: LISINOPRIL 5 MG TABLET PO SCH (08:07)
[2019-03-30] MEDS: FUROSEMIDE 40 MG/4 ML IV SCH (08:07)
[2019-03-30] MEDS: CARVEDILOL 25 MG TABLET PO SCH (08:07)
[2019-03-30] MEDS ORDERED: SPIRONOLACTONE 50 MG TABLET PO SCH ×2 (09:00→21:00)
[2019-03-30 14:52] VITALS: BP 98/66
[2019-03-30] MEDS ORDERED: DIGO250T PO (16:13)
[2019-03-30] MEDS ORDERED: DILT120C11 PO (16:13)
[2019-03-30] MEDS ORDERED: CARV25TA12 PO (16:13)
[2019-03-30] MEDS ORDERED: ACET325T26 PO (16:13)
[2019-03-30] MEDS ORDERED: SPIR50TA PO (16:15)
[2019-03-30] MEDS: CHOLECALCIFEROL 400 UNITS TABLET PO SCH (18:19)
[2019-04-14] MEDS ORDERED: SPIR50TA4 PO (16:52)
[2019-04-14] MEDS ORDERED: CARV-39 PO (16:52)
== END 2019-03-30 18:57 | DRG 871 ==
LOC: ED 11:48 → EDIP 12:44 → 5SO 18:38
PROVIDERS: ADMIT Internal Medicine; ATTEND Internal Medicine
DX: A41.9 Sepsis, unspecified organism (principal); J96.01 Acute respiratory failure with hypoxia; I50.23 Acute on chronic systolic (congestive) heart failure; G93.41 Metabolic encephalopathy; N39.0 Urinary tract infection, site not specified; I48.92 Unspecified atrial flutter; I42.9 Cardiomyopathy, unspecified; D68.69 Other thrombophilia; I48.19 Other persistent atrial fibrillation; B18.2 Chronic viral hepatitis C; E80.4 Gilbert syndrome; I11.0 Hypertensive heart disease with heart failure; Z21 Asymptomatic human immunodeficiency virus [HIV] infection status; Z79.01 Long term (current) use of anticoagulants; Z79.899 Other long term (current) drug therapy; Z87.891 Personal history of nicotine dependence; Z91.14 Patient's other noncompliance with medication regimen; Z91.19 Patient's noncompliance with other medical treatment and regimen
CPT/HCPCS: 36415; 70450; 71045; 80048; 80053; 80069; 81001; 83735; 83880; 84100; 84436; 84443; 84484; 85025; 87086; 93005; 93970; 96374; G0378; J0696; J1940; J1160